=== PATIENT | female | born 1960 ===

== ENCOUNTER 2017-01-20 07:15 | Day surgery (SDC) | payer BC ==
[2017-01-20] VITALS (8 sets, daily range): BP systolic 108–146; BP diastolic 48–80
[~2017-01-20] VITALS: Ht 162.6 cm; Wt 53.5 kg
[2017-01-20] MEDS ORDERED: NKM (08:09)
[2017-01-20] MEDS ORDERED: LR 1000ml ONE (08:30)
[2017-01-20] MEDS ORDERED: Propofol 10mg/ml 20ml IV ONE (08:30)
[2017-01-20] MEDS ORDERED: Lidocaine 1% MPF 10mg/ml 5ml ONE (08:30)
--- NOTE | 2017-01-20 08:30 | Pre-Procedure Note/Attestation ---
Pre-Procedure Note/Attestation Complete Prior to Procedure Planned Procedure: not applicable Procedure Narrative: EGD/Colon Indications for Procedure Pre-Operative Diagnosis: abd pain, colon polyp hx Attestation I attest that I discussed the nature of the procedure; its benefits; risks and complications; and alternatives (and the risks and benefits of such alternatives ), prior to the procedure, with the patient (or the patient's legal plastic products sales representative). I attest that, if there was a reasonable possibility of needing a blood transfusion, the patient (or the patient's legal plastic products sales representative) was given the [facility] standardized written summary, pursuant to the Mitch Graceham Blood Safety Act ([place] Health and Safety Code # 1645, as amended). I attest that I re-evaluated the patient just prior to the surgery and that there has been no change in the patient's H&P, except as documented below: JESSIE ANDERSON Jan 20, 2017 08:30
--- NOTE | 2017-01-20 08:36 | Short Stay Surgery H&P ---
History of Present Illness History of Present Illness Chief Complaint CC EGD/Colon HPI Patient with abd pain and h/o of colon polyps. Also,d/w patient re R neck LN. Says its gone. Did not take abx as directed. PMH/PSH: depression, s/p talon, ortho surgery NKDA FH colon CA GM SH , smoker ROS (-) PE NCAT neck LN resolved CTA RRR soft ND no edema non focal A resolved ALEXANDER (R) neck smoker (L) sided abd pain h/o colon polyp R continue observation of neck for LN EGD/Colon today HPI Anusha Field is a 56 year old female who was admitted on for Abdominal Pain Patient History Allergies: Coded Allergies: No Known Allergies (Unverified , 01/20/17) PAST MEDICAL HISTORY: Past Surgeries: Social History: Medication History Scheduled No Known Medications* (NKM - No Known Medications*), 0 ., (Reported) Physical Exam Vital Signs Last Vital Signs Date Time Temp Pulse Resp B/P Pulse Ox O2 Delivery O2 Flow Rate FiO2 01/20/17 08:08 98.1 56 17 117/70 99 Room Air Plan Attestation Are the patient's medical conditions optimized for surgery? JESSIE ANDERSON Jan 20, 2017 08:36
--- NOTE | 2017-01-20 09:08 | Anethesia Preoperative Eval ---
Anesthesia Pre-op PMH/ROS General Date of Evaluation: Jan 20, 2017 Time of Evaluation: 09:06 Anesthesiologist: geovanny ASA Score: ASA 2 Mallampati Score Class I : Soft palate, uvula, fauces, pillars visible Class II: Soft palate, uvula, fauces visible Class III: Soft palate, base of uvula visible Class IV: Only hard plate visible Mallampati Classification: Class II Surgeon: foreign Diagnosis: abd pain Surgical Procedure: egd/colonoscopy Anesthesia History: none Social History: smoking, current smoker Family History: no anesthesia problems Allergies: Coded Allergies: No Known Allergies (Unverified , 01/20/17) Medications: see eMAR Past Medical History Cardiovascular: Denies: CAD, HTN, CA, arrhythmia, other, valve dz Pulmonary: Denies: COPD, ANNE MARIE, asthma, other Gastrointestinal/Genitourinary: Denies: CRI, ESRD, GERD, other Neurologic/Psychiatric: Denies: CVA, TIA, dementia, depression/anxiety, other Endocrine: Denies: DM, hypothyroidism, other, steroids Hematology/Immune: Denies: DVT, anemia, bleeding disorder, other Anesthesia Pre-op Phys. Exam Physician Exam Last Vital Signs Date Time Temp Pulse Resp B/P Pulse Ox O2 Delivery O2 Flow Rate FiO2 01/20/17 08:08 98.1 56 17 117/70 99 Room Air Constitutional: NAD Neurologic: CN 2-12 intact Cardiovascular: RRR Respiratory: CTA Gastrointestinal: S/NT/ND Airway Exam Mallampati Score: Class II MO: full ROM: full Dentures: no lower, no upper Anesthesia Pre-op A/P Studies Pre-op Studies: EKG - r Risk Assessment & Plan Plan: mac Status Change Before Surgery: No Pre-Antibiotics Drug: none EDIE MARLEY BLOCK SORTER Jan 20, 2017 09:08
--- NOTE | 2017-01-20 09:35 | Immediate Post-Op Evaluation ---
Immediate Post-Op Evalulation Immediate Post-Op Evalulation Procedure: EGD/Colonoscopy Date of Evaluation: Jan 20, 2017 Time of Evaluation: 09:33 IV Fluids: 600 Blood Pressure Systolic: 131 Blood Pressure Diastolic: 80 Pulse Rate: 61 Respiratory Rate: 14 O2 Sat by Pulse Oximetry: 99 Temperature (Fahrenheit): 97.8 Nausea: No Vomiting: No Complications none Patient Status: awake, reacts, patent Hydration Status: adequate Drug: none KYRIERILUCIIONEDIE CRNA Jan 20, 2017 09:35
--- NOTE | 2017-01-20 10:21 | 48 Hour Post Anesthesia Eval ---
Post Anesthesia Evaluation Procedure: EGD/Colonoscopy Date of Evaluation: Jan 20, 2017 Time of Evaluation: 10:21 Blood Pressure Systolic: 108 0: 58 Pulse Rate: 54 Respiratory Rate: 14 O2 Sat by Pulse Oximetry: 99 Airway: patent Nausea: No Hydration Status: adequate Cardiopulmonary Status: stable Mental Status/LOC: patient returned to baseline Post-Anesthesia Complications: none Follow-up care needed: N/A EDIE MARLEY CRNA Jan 20, 2017 10:21
--- NOTE | 2017-01-20 10:24 | Endoscopy Procedure Note ---
Endoscopy Procedure Note Indication for Procedure: Abd pain, h/o polyp Procedures Performed: EGD, colonoscopy Operative Findings/Diagnosis: dim gastric polyp - bx, dim yana polyp - bx, occ early tics, RN bx of L colo Specimen: yes Pt Tolerated Procedure Well: Yes Estimated Blood Loss: none Anesthesiologist: see report Anesthesia: MAC Medication Given: see anesthesia record 50 yrs or older w/o bx or poly: No 10yrs. F/U not recommended: Yes If not recommended, why?: 10 yrs. F/U needed: Yes 18 years or older w/prev. colo: Yes <3yrs. since last colonoscopy: No Med reason:<3 yrs.: System Reason:<3 yrs.: Last colonoscopy >= to 3yrs: Yes JESSIE ANDERSON Jan 20, 2017 10:24
--- NOTE | 2017-01-20 12:31 | Operative Note - Dictated ---
DATE OF OPERATION: 01/20/2017 PROCEDURE: Upper gastrointestinal endoscopy with biopsy as well as colonoscopy with biopsy. SURGEON: Joleen Gilmore M.D. ANESTHESIA: Please see the separate anesthesiologist notes for details. PRE-ENDOSCOPIC DIAGNOSES: 1. Abdominal pain. 2. History of colonic polyps. POST-ENDOSCOPIC DIAGNOSES: 1. Mild gastritis, status post random biopsy of the antrum and also status post random biopsy of the duodenum. 2. Rare early diverticulosis seen in the colon. 3. Diminutive colon polyp at 50 cm, x2, status post biopsy removal and submitted in the same bottle. PROCEDURE: The procedure, its risks, indications, alternatives, and possible complications including, but not limited to bleeding, infection, perforation, , and anesthesia complications were explained to the patient. An informed consent was obtained. The patient was then sedated in the left lateral decubitus position. A diagnostic upper endoscope was introduced through the oropharynx and advanced to the duodenum. Examination of the upper gastric mucosa revealed mild gastritis. Random biopsy of the duodenum and the antrum was sent to pathology for review. The remainder of the upper gastrointestinal examination was unremarkable. The endoscope was removed. Rectal exam was done and the colonoscope was introduced in the rectum and advanced to the terminal ileum without difficulty. The colonoscope was then gradually withdrawn. The mucosa examined carefully. Examination of the terminal ileum mucosa did not reveal any abnormalities. The colonic mucosa showed very rare small early diverticular disease. There were two diminutive polyps at 50 cm in the descending colon which were biopsied and removed and placed in the same bottle. Random biopsy of the left colon were also sent with separate bottle for review. Retroflexed view of the rectum was unremarkable. The colonoscope was removed. The patient was sent to recovery in good condition. COMPLICATIONS: None. RECOMMENDATIONS: 1. High fiber diet. 2. Follow up biopsy results. 3. Outpatient followup. Joleen Gilmore M.D. DR: YOHANNES JOB#: [id number] CC: Joleen Gilmore M.D.; Fax#: [phone]
== END 2017-01-20 11:00 | disposition home or self-care (01) ==
LOC: GAS 07:15
DX: K29.70 Gastritis, unspecified, without bleeding (principal); K31.9 Disease of stomach and duodenum, unspecified; K63.5 Polyp of colon; K57.30 Diverticulosis of large intestine without perforation or abscess without bleeding; Z86.010 Personal history of colon polyps; Z80.0 Family history of malignant neoplasm of digestive organs; F32.9 Major depressive disorder, single episode, unspecified; Z87.891 Personal history of nicotine dependence; Z90.49 Acquired absence of other specified parts of digestive tract
CPT/HCPCS: 43239; 45380; J2704; J7120; 94003; 94150